=== PATIENT | male | born 1950 | race Caucasian/White ===

== ENCOUNTER 2024-03-28 11:06 | Outpatient (CLI) | payer MEDICARE, OTHER, SELFPAY | END 2024-03-28 11:07 | disposition home or self-care (01) | PROVIDERS: PCP Family Medicine; Visit Provider Family Medicine | DX: E78.5 Hyperlipidemia, unspecified (principal); I10 Essential (primary) hypertension; R53.83 Other fatigue; Z13.21 Encounter for screening for nutritional disorder; Z13.29 Encounter for screening for other suspected endocrine disorder | CPT/HCPCS: 80053; 80061; 82607; 84443 ==

== ENCOUNTER 2024-12-31 13:48 | Outpatient (CLI) | payer MEDICARE, OTHER, SELFPAY | END 2024-12-31 13:49 | disposition home or self-care (01) | LOC: AMB 01-04 11:05 | PROVIDERS: PCP Family Medicine; Visit Provider Emergency Medicine Emergency Medical Services | DX: I46.9 Cardiac arrest, cause unspecified (principal) | CPT/HCPCS: A0429 ==